=== PATIENT | male | born 1985 | race Hispanic/Latino ===

== ENCOUNTER 2019-02-02 17:14 | Emergency (ER) | payer MEDICAID, OTHER ==
[2019-02-02 17:14] VITALS: BMI 21.1
--- NOTE | 2019-02-02 17:28 | C.PDOC ---
History Of Present Illness 33 y/o male, with history of anxiety, asthma, bipolar disorder, and depression, comes in to ED for psychiatric evaluation. Per patient, he was feeling like he had too much energy so he decided to jump into a [place] to try to swim to the other side. Notes that he has not taken his bipolar medications in 3 days. Notes increased energy, as well as drinking alcohol yesterday. Denies any other coingestion or other drug use. Denies any SI/HI or depression. Denies any pain or lacerations, bruises, fall, or trauma. No chest pain, abdominal pain, back pain, extremity pain, headache, or other complaints. Time Seen by Provider: 02/02/19 17:17 Chief Complaint (Nursing): Psychiatric Evaluation History Per: Patient History/Exam Limitations: no limitations Onset/Duration Of Symptoms: Hrs Current Symptoms Are (Timing): Still Present Suicide/Self Injury Attempted (Context): None Past Medical History Reviewed: Historical Data, Nursing Documentation, Vital Signs - Medical History PMH: Anxiety, Asthma, Bipolar Disorder, Bronchitis (admits to history of bronchitis as a child ), Depression Denies: Alzheimer's Disease, Anemia, Arthritis, Atrial Fibrillation, Cardia Arrhythmia, CHF, COPD, Diabetes, Emphysema, Fractures, Hepatitis, HIV, HTN, Hypercholesterolemia, Hyperthyroidism, Hypothyroidism, Kidney Stones, Mitral Valve Prolapse, Peripheral Edema, Pneumonia, Pulmonary Embolism, Chronic Kidney Disease, Seizures, Sexually Transmitted Disease, Sleep Apnea Surgical History: Denies: Pacemaker - [facility] Procedures GROUP PSYCHOTHERAPY (12/18/17) INDIVIDUAL PSYCHOTHERAPY, SUPPORTIVE (12/18/17) MEDICATION MANAGEMENT (12/18/17) Family History: States: No Known Family Hx - Social History Hx Alcohol Use: No Hx Substance Use: No Review Of Systems Constitutional: Negative for: Fever, Chills, Weakness, Malaise Eyes: Negative for: Pain, Vision Change, Conjunctivae Inflammation, Redness ENT: Negative for: Ear Pain, Ear Discharge, Nose Pain, Nose Discharge, Throat Pain Cardiovascular: Negative for: Chest Pain, Palpitations, Light Headedness Respiratory: Negative for: Cough, Shortness of Breath, SOB with Excertion, Pleuritic Pain, Wheezing Gastrointestinal: Negative for: Nausea, Vomiting, Abdominal Pain, Diarrhea, Constipation, Melena, Hematochezia, Hematemesis Genitourinary: Negative for: Dysuria, Hematuria Musculoskeletal: Negative for: Neck Pain, Arm Pain, Back Pain, Hand Pain, Leg Pain, Foot Pain Skin: Negative for: Rash, Bruising Neurological: Negative for: Weakness, Numbness, Altered Mental Status, Headache, Dizziness Psych: Positive for: Anxiety. Negative for: Depression, Psychosis, Suicidal ideation Physical Exam - Physical Exam Appears: Well, Non-toxic, No Acute Distress Skin: Warm, Dry, No Rash Head: Atraumatic, Normacephalic Eye(s): bilateral: Normal Inspection, PERRL, EOMI Ear(s): Bilateral: Normal Nose: Normal Oral Mucosa: Moist Tongue: Normal Appearing Lips: Normal Appearing Teeth: Normal Dentition Gingiva: Normal Appearing Throat: Normal, No Erythema, No Exudate, No Drooling Neck: Normal ROM, Trachea Midline, Supple, Other (no meningeal signs) Lymphatic: No Adenopathy Chest: Symmetrical, No Tenderness Cardiovascular: Rhythm Regular, No Murmur, No JVD Respiratory: Normal Breath Sounds, No Rales, No Rhonchi, No Stridor, No Wheezing Gastrointestinal/Abdominal: Soft, No Tenderness, No Organomegaly, No Mass, No Distention, No Guarding, No Rebound, No Hernia Back: Normal Inspection, No CVA Tenderness, No Vertebral Tenderness, No Paraspinal Tenderness Extremity: No Tenderness, No Pedal Edema, No Deformity Extremity: Bilateral: Atraumatic, Normal Color And Temperature Neurological/Psych: Oriented x3, Normal Speech, Normal Cognition, Normal Cranial Nerves, No Cerebellar Signs, Normal Motor, Normal Sensation, Other (pt notes Racing thoughts) Gait: Steady Extremity: Right: No Drift, Left: No Drift ED Course And Treatment - Laboratory Results Result Diagrams: 02/02/19 17:53 02/02/19 17:53 Medical Decision Making Medical Decision Makin33 y/o male, with history of anxiety, asthma, bipolar disorder, and depression, comes in to ED for psychiatric evaluation. No signs of fall or trauma on exam. No headache, abdominal pain, rash, back pain, chest pain. No GI or complaints. No extremity pain. No sob. Likely bipolar: manic phase currently given swimming in [place] / river and med noncompliance. Plan: --EKG --Labs --Chest XR --UA EK, nsr, no stemi 1928 labs largely unremarkable uti on UA VAntin ordered no CVAT or abd pain CXR unremarkable per my read pt denies any penile d/c or stds or recent sexual activity Medically clear Pending crisis dispo 2111 to be transferred to [place]: Dr. Ragland: unspecified bipolar disorder pt in NAD, agreeable to plan for transfer Disposition - Disposition Disposition: Trans to Other Acute Care Hosp Disposition Time: 21:12 Condition: STABLE Forms: Handprint (Yakut) - Clinical Impression Clinical Impression: Bipolar disorder, unspecified, UTI (urinary tract infection) - Scribe Statement The provider has reviewed the documentation as recorded by the Mookie Henao Provider Attestation: All medical record entries made by the Vanessaibjael were at my direction and personally dictated by me. I have reviewed the chart and agree that the record accurately reflects my personal performance of the history, physical exam, medical decision making, and the department course for this patient. I have also personally directed, reviewed, and agree with the discharge instructions and disposition.
[2019-02-02 18:03] LABS: SQUAMOUS EPITHIAL < 1 /hpf (0-5); URINE BILIRUBIN NEGATIVE (NEGATIVE); URINE BLOOD NEGATIVE (NEGATIVE); URINE CLARITY Clear (Clear); URINE COLOR Yellow (YELLOW); URINE GLUCOSE (UA) NORMAL (Normal); URINE LEUKOCYTE ESTERASE NEG Leu/uL (Negative); URINE PROTEIN NEGATIVE (NEGATIVE)
[2019-02-02 18:05] LABS: BASO % 0.6 % (0.0-2.0); EOS # 0.1 K/uL (0.0-0.7); EOS % 1.4 % (0.0-4.0); HEMOGLOBIN 15.4 g/dL (12.0-18.0); LYMPH # 1.2 K/uL (1.0-4.3); LYMPH % 16.6 % (20.0-40.0); MEAN CELL VOLUME 91.6 fL (80.0-94.0); MEAN CORPUSCULAR HEMOGLOBIN 32.3 pg (27.0-31.0); MEAN CORPUSCULAR HGB CONC 35.3 g/dL (33.0-37.0); MEAN PLATELET VOLUME 7.1 fL (7.2-11.7); MONO # 0.7 K/uL (0.0-0.8); MONO % 9.4 % (0.0-10.0); NEUT # 5.3 K/uL (1.8-7.0); RBC 4.76 Mil/uL (4.40-5.90); RED CELL DISTRIBUTION WIDTH 12.4 % (11.5-14.5); WHITE BLOOD COUNT 7.3 K/uL (4.8-10.8)
[2019-02-02 18:10] LABS: ALB/GLOB RATIO 1.5 (1.0-2.1); ALBUMIN 4.9 g/dL (3.5-5.0); ALT/SGPT 30 U/L (21-72); AST/SGOT 55 U/L (17-59); BLOOD UREA NITROGEN 17 mg/dL (9-20); CALCIUM 9.6 mg/dl (8.6-10.4); GFR NON-AFRICAN AMERICAN > 60
[2019-02-02 18:15] LABS: ACETAMINOPHEN < 10.0 ug/mL (10.0-30.0); SALICYLATE < 1.0 mg/dL 1
[2019-02-02 18:23] LABS: BARBITURATES, UR NEGATIVE (NEGATIVE); BENZODIAZEPINES, UR NEGATIVE (NEGATIVE); OPIATES, UR NEGATIVE (NEGATIVE); PHENCYCLIDINE, UR NEGATIVE (NEGATIVE)
[2019-02-02] MEDS ORDERED: Cefpodoxime (Vantin) 200 mg Tab PO STA (19:26)
[2019-02-02] MEDS ORDERED: Cefpodoxime (Vantin) 200 mg Tab PO ONE (19:45)
[2019-02-02 20:59] VITALS: RESP 20
[2019-02-02 22:39] VITALS: BP 98/66; PULSE 61; TEMP 98.1; O2SAT 98
--- NOTE | 2019-02-03 07:09 | RAD ---
Date of service: 02/02/2019 HISTORY: Detox/Psy COMPARISON: None available. TECHNIQUE: Chest one view . FINDINGS: LUNGS: No focal consolidation is seen. PLEURA: No pleural effusion is identified. CARDIOVASCULAR: Heart size is within normal limits. No atherosclerotic calcification present. OSSEOUS STRUCTURES: No acute fracture identified. VISUALIZED UPPER ABDOMEN: Unremarkable. OTHER FINDINGS: None. IMPRESSION: No acute cardiopulmonary process seen.
--- NOTE | 2019-02-03 20:38 | CARD ---
APPROVED REPORT Date of service: 02/02/2019 EKG Measurement Heart [id number] MD [id number] <Conclusion> Normal sinus rhythm Normal ECG
== END 2019-02-02 22:47 | disposition short-term general hospital (02) ==
LOC: C.ER 17:14
DX: F31.9 Bipolar disorder, unspecified (principal); N39.0 Urinary tract infection, site not specified
CPT/HCPCS: 71045; 80053; 80320; 80324; 80329; 80345; 80346; 80349; 80353; 80358; 80361; 81001; 82550; 83735; 83992; 84100; 85025; 87086; 93005; 99285; J0694